=== PATIENT | male | born 1990 | race Caucasian/White ===

== ENCOUNTER 2016-12-05 12:06 | Emergency (ER) | payer OTHER ==
[~2016-12-05] VITALS: Ht 165.1 cm; Wt 73.2 kg
[2016-12-05 12:15] VITALS: TEMP 36.9; Ht 165.1 cm; Wt 73.2 kg
[2016-12-05] MEDS ORDERED: IBUP-1277 PO (12:48)
[2016-12-05] MEDS ORDERED: SODIUM CHLORIDE 0.9% 1000ML 1,000 ML IV STA (13:03)
--- NOTE | 2016-12-05 13:07 | EMERGENCY ROOM VISIT NOTE ---
History First contact with patient: 12:54 Chief Complaint: URINARY SYMPTOMS Stated Complaint: PAIN IN RT KIDNEY, NAUSEA Nursing Triage Summary: pt c/o right flank around to abd started today while at work. feels nauseated no vomiting pt has hx of kidney stones pt c/o pain when moving bowels History of Present Illness The patient is a 26 year old male who presents to the Emergency Room with complaints of right flank and abdominal pain. The patient states that his pain started today. He states the pain is in the right flank and the right side of the abdomen. It is associated with nausea. He does not know of any alleviating or aggravating factors. He denies any fevers. He denies any diarrhea. He reports some dysuria. The patient was seen here 1 month ago for left-sided abdominal pain. A CT scan at that time did reveal a right renal stone. The patient states he has had a kidney stone in the remote past and this feels similar. He denies any pain in his chest or trouble breathing. He denies any diarrhea. Review of Systems A 10 system review of systems was completed with positives and pertinent negatives listed in the HPI. The patient does not speak Bangladeshi but his friend is able to interpret. Past Medical/Surgical History Patient denies Social History Smoking Status: Never Smoker Alcohol Use: none Drug Use: none Occupation Status: employed Current/Historical Medications Scheduled Doxycycline (Monohydrate) (Doxycycline Monohydrate), 100 MG PO BID Miscellaneous Medications Ibuprofen (Advil), 400 MG PO Allergies Coded Allergies: No Known Allergies (Unverified , 12/05/16) Physical Exam Vital Signs Date Time Temp Pulse Resp B/P Pulse Ox O2 Delivery O2 Flow Rate FiO2 12/05/16 15:14 67 18 122/72 98 12/05/16 13:48 106/63 12/05/16 12:15 36.9 60 18 136/83 98 Room Air Physical Exam VITALS: Vitals are noted on the nurse's note and reviewed by myself. Vital signs stable. The patient is afebrile. GENERAL: This is a 26-year-old male, in no acute distress, nondiaphoretic, well- developed well-nourished. SKIN: The skin was without rashes, erythema, edema, or bruising. There is no tenting of the skin. Capillary reflex less than 2 seconds. HEAD: Normocephalic atraumatic. EARS: The external ears are normal in appearance. EYES: Pupils equal round and reactive to light and accommodation. Conjunctivae without injection, sclerae without icterus. Extraocular movements intact. NOSE: Patent, turbinates without inflammation or discharge. MOUTH: Mucous membranes moist. Tonsils are not enlarged. Pharynx without erythema or exudate. Uvula midline. Airway patent. Tongue does not deviate. NECK: Supple without nuchal rigidity. No lymphadenopathy. No thyromegaly. Cervical spine is nontender. No JVD. HEART: Regular rate and rhythm without murmurs gallops or rubs. LUNGS: Clear to auscultation bilaterally without wheezes, rales or rhonchi. No retractions or accessory muscle use. ABDOMEN: Positive bowel sounds x 4. Soft, moderate right lower quadrant tenderness, without masses or organomegaly. Man sign negative. Moderate right-sided CVA tenderness. MUSCULOSKELETAL: No muscle atrophy, erythema, or edema noted. Full range of motion in all extremities. Normal gait. Strength 5/5 throughout. NEURO: Patient was alert and oriented to person place and time. No focal neurological deficits. Medical Decision & Procedures ER Provider Diagnostic Interpretation: CT OF THE ABDOMEN AND PELVIS WITHOUT CONTRAST, STONE PROTOCOL CLINICAL HISTORY: Right flank pain. COMPARISON STUDY: CT of the abdomen and pelvis October 17, 2016. TECHNIQUE: Helical axial images of the abdomen and pelvis were obtained without IV or oral contrast according to renal stone protocol. FINDINGS: Lung bases are clear. A 3 mm calculus within the lower pole of the right kidney is unchanged in position. There are no ureteral calculi. No hydronephrosis or hydroureter is present. Unenhanced images of liver, spleen, adrenal glands and pancreas are normal. There is no evidence for a bowel obstruction. The appendix is normal. There is no ascites or lymphadenopathy. Colonic diverticulosis is noted without evidence for acute diverticulitis. No significant skeletal abnormalities are identified. There is no biliary or pancreatic ductal dilatation. IMPRESSION: 1. 3 mm right renal calculus, unchanged in position since prior CT. No ureteral calculi or hydronephrosis. 2. No acute process within the abdomen or pelvis on unenhanced exam. Normal appendix. Electronically signed by: Juan Manuel Shirley M.D. 12/05/2016 2:13 PM Dictated Date/Time: 12/05/2016 1:58 PM Laboratory Results 12/05/16 12:35 Red Blood Count 5.27, Mean Corpuscular Volume 85.8, Mean Corpuscular Hemoglobin 30.4, Mean Corpuscular Hemoglobin Concent 35.4, Mean Platelet Volume 10.5, Neutrophils (%) (Auto) 59.2, Lymphocytes (%) (Auto) 33.1, Monocytes (%) (Auto) 6.5, Eosinophils (%) (Auto) 0.6, Basophils (%) (Auto) 0.4, Neutrophils # (Auto) 4.94, Lymphocytes # (Auto) 2.76, Monocytes # (Auto) 0.54, Eosinophils # (Auto) 0.05, Basophils # (Auto) 0.03 12/05/16 12:35 Test 12/05/16 12:25 12/05/16 12:35 Urine Color YELLOW Urine Appearance CLEAR (CLEAR) Urine pH 5.0 (4.5-7.5) Urine Specific [place] 1.023 (1.000-1.030) Urine Protein NEG (NEG) Urine Glucose (UA) NEG (NEG) Urine Ketones NEG (NEG) Urine Occult Blood 3+ (NEG) Urine Nitrite NEG (NEG) Urine Bilirubin NEG (NEG) Urine Urobilinogen NEG (NEG) Urine Leukocyte Esterase NEG (NEG) Urine WBC (Auto) 1-5 /hpf (0-5) Urine RBC (Auto) 10-30 /hpf (0-4) Urine Hyaline Casts (Auto) 0 /lpf (0-5) Urine Epithelial Cells (Auto) 0-5 /lpf (0-5) Urine Bacteria (Auto) NEG (NEG) White Blood Count 8.34 K/uL (4.8-10.8) Red Blood Count 5.27 M/uL (4.7-6.1) Hemoglobin 16.0 g/dL (14.0-18.0) Hematocrit 45.2 % (42-52) Mean Corpuscular Volume 85.8 fL (80-100) Mean Corpuscular Hemoglobin 30.4 pg (25-34) Mean Corpuscular Hemoglobin Concent 35.4 g/dl (32-36) Platelet Count 259 K/uL (130-400) Mean Platelet Volume 10.5 fL (7.4-10.4) Neutrophils (%) (Auto) 59.2 % Lymphocytes (%) (Auto) 33.1 % Monocytes (%) (Auto) 6.5 % Eosinophils (%) (Auto) 0.6 % Basophils (%) (Auto) 0.4 % Neutrophils # (Auto) 4.94 K/uL (1.4-6.5) Lymphocytes # (Auto) 2.76 K/uL (1.2-3.4) Monocytes # (Auto) 0.54 K/uL (0.11-0.59) Eosinophils # (Auto) 0.05 K/uL (0-0.5) Basophils # (Auto) 0.03 K/uL (0-0.2) RDW Standard Deviation 38.6 fL (36.4-46.3) RDW Coefficient of Variation 12.3 % (11.5-14.5) Immature Granulocyte % (Auto) 0.2 % Immature Granulocyte # (Auto) 0.02 K/uL (0.00-0.02) Anion Gap 9.0 mmol/L (3-11) Est Creatinine Clear Calc Drug Dose 99.4 ml/min Estimated GFR () 122.8 Estimated GFR (Non- 106.0 BUN/Creatinine Ratio 16.6 (10-20) Calcium Level 8.9 mg/dl (8.5-10.1) Total Bilirubin 0.4 mg/dl (0.2-1) Aspartate Amino Transf (AST/SGOT) 23 U/L (15-37) Alanine Aminotransferase (ALT/SGPT) 25 U/L (12-78) Alkaline Phosphatase 57 U/L (45-117) Total Creatine Kinase 236 U/L (39-308) Total Protein 7.6 gm/dl (6.4-8.2) Albumin 4.1 gm/dl (3.4-5.0) Globulin 3.5 gm/dl (2.5-4.0) Albumin/Globulin Ratio 1.2 (0.9-2) Lipase 99 U/L (73-393) Medications Administered Medications (Trade) Dose Ordered Sig/Harleen Route Start Time Stop Time Status Last Admin Dose Admin Sodium Chloride (Nss 1000ml) 1,000 ml @ 999 mls/hr Q1H1M STAT IV 12/05/16 13:03 12/05/16 14:03 DC 12/05/16 13:12 999 MLS/HR Ceftriaxone Sodium (Rocephin Inj) 1 gm NOW STAT IV 12/05/16 14:21 12/05/16 14:23 DC 12/05/16 14:35 1 GM Azithromycin (Zithromax Tab) 1,000 mg NOW ONCE PO 12/05/16 14:30 12/05/16 14:31 DC 12/05/16 14:36 1,000 MG Doxycycline Hyclate (Vibramycin Cap) 100 mg NOW STAT PO 12/05/16 14:21 12/05/16 14:23 DC 12/05/16 14:35 100 MG ED Course The patient was seen and examined. Previous visits were reviewed. The patient does not have a fever or leukocytosis. He does not have any significant electrolyte abnormalities. CPK was not elevated. Lipase was not elevated. Urinalysis reveals hematuria but no evidence of pyuria or urinary tract infection. CT scan of the abdomen and pelvis reveals a normal appendix. There is nephrolithiasis but no ureterolithiasis. This is unchanged when compared to a study from last month. The patient declined pain medication. The patient was given 1 g IV Rocephin, 1 g oral Zithromax and 100 mg oral doxycycline The patient does have hematuria which has been persistent since last month. He does have nephrolithiasis but no ureterolithiasis. There is no obvious urinary tract infection. The patient denies any penile discharge or chance for sexually -transmitted infection. I discussed the case with Dr. Monet. He recommends the above antibiotics and a prescription for doxycycline. It sounds as though the patient has an appointment at the end of the month with a specialist, possibly urology or nephrology. He should keep this appointment. He should return with any worsening symptoms. Medical Decision DIFFERENTIAL DIAGNOSIS: Hepatitis, cholecystitis, cholangitis, biliary colic, pancreatitis, pneumonia, subdiaphragmatic abscess, appendicitis, inguinal hernia , nephrolithiasis, inflammatory bowel disease, mesenteric adenitis, peptic ulcer disease, GERD, gastritis, pancreatitis, gastroenteritis, bowel obstruction, splenic infarct, diverticulitis, mesenteric ischemia, metabolic, peritonitis, among others. Impression Primary Impression: Hematuria Additional Impression: Flank pain Departure Information Dispostion Home / Self-Care Condition GOOD Prescriptions Doxycycline (Monohydrate) (DOXYCYCLINE MONOHYDRATE) 100 Mg Tab 100 MG PO BID for 10 Days, #20 CAP Prov: Ami Madden PA-C 12/05/16 Referrals Jm Ramos D.O. (PCP) Patient Instructions ED Hematuria, ED Prostatitis, [facility] Additional Instructions Ibuprofen 600 mg every 6-8 hours for moderate pain [place] 1 tablet every 6 hours if needed for worse pain. Do not drink or drive while taking [place] and do not take with Tylenol. Doxycycline every 12 hours for 10 days Follow-up with the specialist at the end of the month as scheduled Return to the emergency Department with any worsening pain, fevers Problem Qualifiers
[2016-12-05 13:14] LABS: BASO % 0.4 %; BASO ABS # 0.03 K/uL (0-0.2); COMPLETE YES; EOS % 0.6 %; HEMATOCRIT 45.2 % (42-52); IG% 0.2 %; LYMPH % 33.1 %; LYMPH ABS # 2.76 K/uL (1.2-3.4); MEAN CELL VOLUME 85.8 fL (80-100); MEAN CORPUSCULAR HEMOGLOBIN 30.4 pg (25-34); MEAN CORPUSCULAR HGB CONC 35.4 g/dl (32-36); MEAN PLATELET VOLUME 10.5 fL (7.4-10.4); MONO % 6.5 %; NEUT % 59.2 %; PLATELET COUNT 259 K/uL (130-400); RED BLOOD COUNT 5.27 M/uL (4.7-6.1); WHITE BLOOD COUNT 8.34 K/uL (4.8-10.8)
[2016-12-05 13:19] LABS: BUN/CREATININE RATIO 16.6 (10-20); CALCIUM 8.9 mg/dl (8.5-10.1); CREATININE 0.98 mg/dl (0.60-1.40)
[2016-12-05 13:22] LABS: ALB/GLOB RATIO 1.2 (0.9-2)
[2016-12-05 13:49] LABS: URINE APPEARANCE CLEAR (CLEAR); URINE BILIRUBIN NEG (NEG); URINE COLOR YELLOW; URINE EPITHELIAL CELL AUTO 0-5 /lpf (0-5); URINE NITRITE NEG (NEG); URINE SPECIFIC GRAVITY 1.023 (1.000-1.030); UROBILINOGEN NEG (NEG); ZZUR CULT IF INDIC CLEAN CATCH NO
[2016-12-05 13:52] LABS: MANUAL MICROSCOPIC REQUIRED? NO; REVIEW REQ? NO
--- NOTE | 2016-12-05 14:15 | DIAGNOSTIC IMAGING REPORT ---
CT OF THE ABDOMEN AND PELVIS WITHOUT CONTRAST, STONE PROTOCOL CLINICAL HISTORY: Right flank pain. COMPARISON STUDY: CT of the abdomen and pelvis October 17, 2016. TECHNIQUE: Helical axial images of the abdomen and pelvis were obtained without IV or oral contrast according to renal stone protocol. FINDINGS: Lung bases are clear. A 3 mm calculus within the lower pole of the right kidney is unchanged in position. There are no ureteral calculi. No hydronephrosis or hydroureter is present. Unenhanced images of liver, spleen, adrenal glands and pancreas are normal. There is no evidence for a bowel obstruction. The appendix is normal. There is no ascites or lymphadenopathy. Colonic diverticulosis is noted without evidence for acute diverticulitis. No significant skeletal abnormalities are identified. There is no biliary or pancreatic ductal dilatation. IMPRESSION: 1. 3 mm right renal calculus, unchanged in position since prior CT. No ureteral calculi or hydronephrosis. 2. No acute process within the abdomen or pelvis on unenhanced exam. Normal appendix. Electronically signed by: Juan Manuel Shirley M.D. 12/05/2016 2:13 PM Dictated Date/Time: 12/05/2016 1:58 PM
[2016-12-05] MEDS ORDERED: CEFTRIAXONE SOD INJ 1 GM ADDVIAL IV STA (14:21)
[2016-12-05] MEDS ORDERED: DOXYCYCLINE HYCLATE 100 MG CAP PO STA (14:21)
[2016-12-05] MEDS ORDERED: AZITHROMYCIN 250 MG TAB PO ONE (14:30)
[2016-12-05] MEDS ORDERED: DOXY100T17 PO (14:36)
[2016-12-05 15:14] VITALS: BP 122/72; PULSE 67; O2SAT 98
[2017-04-16] MEDS ORDERED: BENZ1LOZ2 PO (17:17)
[2017-04-16] MEDS ORDERED: LEVO1TAB35 PO (18:54)
== END 2016-12-05 15:16 | disposition home or self-care (01) ==
LOC: C.EDB 12:07 → C.EDA 15:16
DX: N20.0 Calculus of kidney (principal); Z87.442 Personal history of urinary calculi

== ENCOUNTER 2017-01-23 10:12 | Emergency (ER) | payer OTHER ==
[~2017-01-23] VITALS: Ht 165.1 cm; Wt 75.9 kg
[~2017-01-23 10:12] MED LIST: DOXY100T17 PO; IBUP-1277 PO
[2017-01-23 10:17] VITALS: TEMP 36.9; Ht 165.1 cm; Wt 75.9 kg
[2017-01-23] MEDS ORDERED: SODIUM CHLORIDE 0.9% 1000ML 1,000 ML IV STA (11:02)
[2017-01-23] MEDS ORDERED: ONDANSETRON INJ 2 MG/ML 2 ML VIAL IV STA (11:02)
[2017-01-23] MEDS ORDERED: MoRPHine SULFATE 10 MG/ML CARP/VIAL IV STA (11:02)
[2017-01-23] MEDS ORDERED: KETOROLAC TROMETHAMINE 30 MG/ML VIAL IV STA (11:02)
[2017-01-23] MEDS ORDERED: TAMSULOSIN HCL 0.4 MG CAP PO ONE (11:15)
[2017-01-23 11:16] LABS: MANUAL MICROSCOPIC REQUIRED? NO; REVIEW REQ? NO; URINE APPEARANCE CLEAR (CLEAR); URINE BILIRUBIN NEG (NEG); URINE COLOR YELLOW; URINE NITRITE NEG (NEG); URINE SPECIFIC GRAVITY 1.027 (1.000-1.030); UROBILINOGEN NEG (NEG); ZZUR CULT IF INDIC CLEAN CATCH NO
[2017-01-23 11:54] LABS: HEMATOCRIT 47.6 % (42-52); MEAN CELL VOLUME 86.4 fL (80-100); MEAN CORPUSCULAR HGB CONC 35.9 g/dl (32-36); MEAN PLATELET VOLUME 10.5 fL (7.4-10.4); PLATELET COUNT 219 K/uL (130-400); RED BLOOD COUNT 5.51 M/uL (4.7-6.1); WHITE BLOOD COUNT 7.95 K/uL (4.8-10.8)
--- NOTE | 2017-01-23 12:06 | DIAGNOSTIC IMAGING REPORT ---
ABDOMEN AND PELVIS CT WITHOUT CONTRAST CT DOSE: 790.31 mGycm HISTORY: Right flank pain flank pain/hematuria TECHNIQUE: Multiaxial CT images of the abdomen and pelvis were performed without the use of intravenous and oral contrast according to the standard department stone protocol. COMPARISON STUDY: 12/05/2016 FINDINGS: Lung bases are clear. Liver spleen and pancreas are unremarkable. Left kidney is negative for calcification or hydronephrosis. The adrenal glands are unremarkable. Right kidney shows mild fullness of the collecting system and right ureter. There is a partially obstructing 3 mm calculus at the mid sacral level best seen transaxial image 116 bowel pattern within the abdomen and pelvis is nonobstructive. There are scattered colonic diverticuli. Bladder is midline. IMPRESSION: Partially obstructing 3 mm calculus mid to distal right ureter. Mild fullness right ureter and right renal collecting system. Otherwise negative study Electronically signed by: Arvind Coto M.D. 01/23/2017 12:05 PM Dictated Date/Time: 01/23/2017 11:59 AM
[2017-01-23 12:11] LABS: ALT/SGPT 25 U/L (12-78); BLOOD UREA NITROGEN 14 mg/dl (7-18); BUN/CREATININE RATIO 13.9 (10-20); CALCIUM 8.8 mg/dl (8.5-10.1); CARBON DIOXIDE 28 mmol/L (21-32); CHLORIDE 107 mmol/L (98-107); GLUCOSE 122 mg/dl (70-99); POTASSIUM 3.6 mmol/L (3.5-5.1); SODIUM 141 mmol/L (136-145)
[2017-01-23 12:14] LABS: ALKALINE PHOSPHATASE 67 U/L (45-117); AST/SGOT 17 U/L (15-37)
[2017-01-23 12:21] VITALS: BP 140/87; PULSE 59; O2SAT 96
[2017-01-23] MEDS ORDERED: ONDA4TAB10 SL (12:34)
[2017-01-23] MEDS ORDERED: OXYC1TAB3 PO (12:34)
[2017-01-23] MEDS ORDERED: TAMS0.4C38 PO (12:34)
--- NOTE | 2017-01-23 12:36 | EMERGENCY ROOM VISIT NOTE ---
History First contact with patient: 10:58 Chief Complaint: FLANK PAIN Stated Complaint: KIDNEY - BLOOD IN URINE History of Present Illness The patient is a 26 year old male who presents to the Emergency Room with complaints of right flank pain and hematuria. The patient states the symptoms started last night. The patient denies any nausea or vomiting. The patient admits to normal bowel movements. The patient denies any other urinary symptoms of dysuria, frequency or urgency. The patient states that he has a history of kidney stones. The patient denies any fever. Review of Systems 10 system review was performed and was negative unless stated otherwise history of present illness. Past Medical/Surgical History Kidney stones Social History Smoking Status: Never Smoker Alcohol Use: none Drug Use: none Occupation Status: employed Current/Historical Medications No Active Prescriptions or Reported Meds Allergies Coded Allergies: No Known Allergies (Unverified , 01/23/17) Physical Exam Vital Signs Date Time Temp Pulse Resp B/P Pulse Ox O2 Delivery O2 Flow Rate FiO2 01/23/17 12:21 59 18 140/87 96 Room Air 01/23/17 10:17 36.9 73 18 144/93 99 Room Air Physical Exam GENERAL: 26-year-old male appears in no acute distress. The patient speaks broken French. MENTAL Status: Alert and oriented 3. MOUTH: Mucosa is moist NECK: Supple, no lymphadenopathy noted. No carotid bruits noted. LUNGS: Clear auscultation without wheezes rales or rhonchi. CARDIAC: Regular rate and rhythm without murmur. Pulses is full and equal throughout. BACK: No CVA tenderness noted. ABDOMEN: Positive bowel sounds all 4 quadrants. Soft, tenderness palpation in the right lower quadrant otherwise nontender to palpation without organomegaly or masses. EXTREMITIES: No cyanosis or edema noted. Medical Decision & Procedures ER Provider Diagnostic Interpretation: ABDOMEN AND PELVIS CT WITHOUT CONTRAST CT DOSE: 790.31 mGycm HISTORY: Right flank pain flank pain/hematuria TECHNIQUE: Multiaxial CT images of the abdomen and pelvis were performed without the use of intravenous and oral contrast according to the standard department stone protocol. COMPARISON STUDY: 12/05/2016 FINDINGS: Lung bases are clear. Liver spleen and pancreas are unremarkable. Left kidney is negative for calcification or hydronephrosis. The adrenal glands are unremarkable. Right kidney shows mild fullness of the collecting system and right ureter. There is a partially obstructing 3 mm calculus at the mid sacral level best seen transaxial image 116 bowel pattern within the abdomen and pelvis is nonobstructive. There are scattered colonic diverticuli. Bladder is midline. IMPRESSION: Partially obstructing 3 mm calculus mid to distal right ureter. Mild fullness right ureter and right renal collecting system. Otherwise negative study Electronically signed by: Arvind Coto M.D. 01/23/2017 12:05 PM Laboratory Results 01/23/17 11:30 01/23/17 11:30 Test 01/23/17 11:00 01/23/17 11:30 Urine Color YELLOW Urine Appearance CLEAR (CLEAR) Urine pH 7.0 (4.5-7.5) Urine Specific [place] 1.027 (1.000-1.030) Urine Protein NEG (NEG) Urine Glucose (UA) NEG (NEG) Urine Ketones NEG (NEG) Urine Occult Blood 3+ (NEG) Urine Nitrite NEG (NEG) Urine Bilirubin NEG (NEG) Urine Urobilinogen NEG (NEG) Urine Leukocyte Esterase NEG (NEG) Urine WBC (Auto) 1-5 /hpf (0-5) Urine RBC (Auto) >30 /hpf (0-4) Urine Hyaline Casts (Auto) 1-5 /lpf (0-5) Urine Epithelial Cells (Auto) 5-10 /lpf (0-5) Urine Bacteria (Auto) NEG (NEG) Red Blood Count 5.51 M/uL (4.7-6.1) Mean Corpuscular Volume 86.4 fL (80-100) Mean Corpuscular Hemoglobin 31.0 pg (25-34) Mean Corpuscular Hemoglobin Concent 35.9 g/dl (32-36) RDW Standard Deviation 38.3 fL (36.4-46.3) RDW Coefficient of Variation 12.0 % (11.5-14.5) Mean Platelet Volume 10.5 fL (7.4-10.4) Anion Gap 6.0 mmol/L (3-11) Est Creatinine Clear Calc Drug Dose 106.5 ml/min Estimated GFR () 119.9 Estimated GFR (Non- 103.4 BUN/Creatinine Ratio 13.9 (10-20) Calcium Level 8.8 mg/dl (8.5-10.1) Total Bilirubin 0.2 mg/dl (0.2-1) Direct Bilirubin < 0.1 mg/dl (0-0.2) Aspartate Amino Transf (AST/SGOT) 17 U/L (15-37) Alanine Aminotransferase (ALT/SGPT) 25 U/L (12-78) Alkaline Phosphatase 67 U/L (45-117) Total Protein 7.7 gm/dl (6.4-8.2) Albumin 3.8 gm/dl (3.4-5.0) Lipase 100 U/L (73-393) Medications Administered Medications (Trade) Dose Ordered Sig/Harleen Route Start Time Stop Time Status Last Admin Dose Admin Sodium Chloride (Nss 1000ml) 1,000 ml @ 999 mls/hr Q1H1M STAT IV 01/23/17 11:02 01/23/17 12:02 DC 01/23/17 11:40 999 MLS/HR Ketorolac Tromethamine (Toradol Inj) 30 mg NOW STAT IV 01/23/17 11:02 01/23/17 11:05 DC 01/23/17 11:39 30 MG Tamsulosin HCl (Flomax Cap) 0.4 mg NOW ONCE PO 01/23/17 11:15 01/23/17 11:16 DC 01/23/17 11:38 0.4 MG Morphine Sulfate (MoRPHine SULFATE INJ) 6 mg NOW STAT IV 01/23/17 11:02 01/23/17 11:05 DC 01/23/17 11:39 6 MG Ondansetron HCl (Zofran Inj) 4 mg NOW STAT IV 01/23/17 11:02 01/23/17 11:05 DC 01/23/17 11:38 4 MG ED Course The patient was evaluated. IV access was obtained. The patient was given 1 L normal saline wide-open. The patient was given Flomax 0.4 mg by mouth. The patient was also given Toradol 30 mg IV, morphine 6 mg IV and Zofran 4 mg IV. CBC and differential, renal profile, LFTs and lipase levels were ordered. Urinalysis was ordered. Urinalysis was negative. Labs are reviewed and were unremarkable. CT stone study was ordered and interpreted by the radiologist as above with a 3 mm mid right ureteral calculi. The patient was informed of all findings. The patient was reevaluated was feeling better. The patient was discharged home in stable condition. Medical Decision Differential diagnosis include UTI, pyelonephritis, ureteral calculi, diverticulitis, acute appendicitis Due to the patient's history of kidney stones and hematuria most likely diagnosis with ureteral calculi. Impression Primary Impression: Ureteral calculus, right Departure Information Dispostion Home / Self-Care Condition GOOD Prescriptions Tamsulosin Hcl (FLOMAX) 0.4 Mg Cap 0.4 MG PO DAILY for 7 Days, #7 CAP Prov: Jemima Coto PA-C 01/23/17 Ondasetron Odt (ZOFRAN ODT) 4 Mg Tab 4 MG SL Q6H for Nausea, #10 TAB Prov: Jemima Coto PA-C 01/23/17 Oxycodone Immediate Rel Tab (ROXICODONE IR) 5 Mg Tab 1-2 TAB PO Q6 Y for Pain, #24 TAB Prov: Jemima Coto PA-C 01/23/17 Referrals Jm Ramos D.O. (PCP) Forms HOME CARE DOCUMENTATION FORM, IMPORTANT VISIT INFORMATION Patient Instructions Kidney Stones - [facility], [facility] Additional Instructions Push fluids. Take Flomax daily as directed. Ibuprofen 600 mg every 6 hours with food for pain. Take OxyIR as needed for more severe pain. Do not drive while taking the OxyIR. Take Zofran as needed for nausea. Strain all your urine. If if you have not passed the stone in 1 week recommend follow-up with Dr. De
[2017-04-16] MEDS ORDERED: BENZ1LOZ2 PO (17:17)
[2017-04-16] MEDS ORDERED: LEVO1TAB35 PO (18:54)
== END 2017-01-23 12:49 | disposition home or self-care (01) ==
LOC: C.EDB 10:17 → C.EDA 12:49
DX: N20.2 Calculus of kidney with calculus of ureter (principal); Z87.442 Personal history of urinary calculi

== ENCOUNTER 2017-03-05 08:59 | Emergency (ER) | payer OTHER ==
[~2017-03-05] VITALS: Ht 165.1 cm; Wt 75.7 kg
[~2017-03-05 08:59] MED LIST changes: -DOXY100T17 PO; -IBUP-1277 PO; +ONDA4TAB10 SL; +OXYC1TAB3 PO
[2017-03-05 09:04] VITALS: TEMP 37; Ht 165.1 cm; Wt 75.7 kg
--- NOTE | 2017-03-05 09:44 | DIAGNOSTIC IMAGING REPORT ---
LEFT FOOT 3 VIEWS CLINICAL HISTORY: Left lateral foot pain. No trauma. FINDINGS: 3 views of the left foot are obtained. No prior studies are available for comparison at the time of dictation. The skeletal structures are well mineralized. No fracture is seen. A large os naviculari is incidentally noted. The joint spaces of the foot are well-maintained. The overlying soft tissues are within normal limits. IMPRESSION: No acute bony abnormality is seen in the left foot. Electronically signed by: Benito Maharaj M.D. 03/05/2017 9:42 AM Dictated Date/Time: 03/05/2017 9:41 AM
--- NOTE | 2017-03-05 09:49 | EMERGENCY ROOM VISIT NOTE ---
ED Visit Note First contact with patient: 09:10 CHIEF COMPLAINT: Left foot pain times one day HISTORY OF PRESENT INJURY: Patient is a 26-year-old white male who presents to the emergency department for evaluation of left foot pain. He has had symptoms for a week or so but they got worse last evening. 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 He is on his feet a lot. He denies any direct trauma or injury. He has not taken any medications, nor performed any interventions for his symptoms. He states that the pain was so severe he could not walk this morning. He presently rates it an 8/10. It is located in the lateral aspect of the left foot, primarily over the third, fourth and fifth toes and into the metatarsal region. He denies any ankle pain. REVIEW OF SYSTEMS: Review of systems as per HPI. All other systems reviewed were negative. At least 6 systems reviewed. PMH: Electronic medical records are reviewed and summarized as above/below. See Problem List. SOCIAL HISTORY: The patient lives at home with his family. Nonsmoker. PHYSICAL EXAM: Vital Signs: Reviewed Nurse's notes. GENERAL: Pleasant 26-year- old white male who is awake and alert and in no acute distress. He has a family member at the bedside. MUSCULOSKELETAL: Left ankle is nonswollen, and nontender to palpation. No ankle joint effusion is appreciated. He has tenderness over the third and fourth toes, extending into the third and fourth metatarsals. He does not have any pain over the first metatarsal or the great toe. Midfoot is normal. Lisfranc joint is negative. Range of motion is full. No deformity. The skin is intact. Capillary refill is less than 2 seconds. Sensation is intact. EMERGENCY DEPARTMENT COURSE: X-rays of the left foot were obtained and were negative for acute fracture or bony abnormality. Differential diagnosis includes fracture, sprain, contusion, stress reaction, dislocation, among others. Conservative care measures were discussed. Patient declined crutches. LEFT FOOT 3 VIEWS CLINICAL HISTORY: Left lateral foot pain. No trauma. FINDINGS: 3 views of the left foot are obtained. No prior studies are available for comparison at the time of dictation. The skeletal structures are well mineralized. No fracture is seen. A large os naviculari is incidentally noted. The joint spaces of the foot are well-maintained. The overlying soft tissues are within normal limits. IMPRESSION: No acute bony abnormality is seen in the left foot. Problem List Medical Problems: (1) Abdominal pain, left lower quadrant Status: Resolved (2) Flank pain Status: Resolved (3) Hematuria Status: Resolved (4) Ureteral calculus, right Status: Resolved Current/Historical Medications No Active Prescriptions or Reported Meds Allergies Coded Allergies: No Known Allergies (Unverified , 03/05/17) Vital Signs Date Time Temp Pulse Resp B/P Pulse Ox O2 Delivery O2 Flow Rate FiO2 03/05/17 10:03 76 18 138/79 98 03/05/17 09:04 37.0 84 18 149/80 97 Room Air Departure Information Impression Primary Impression: Foot pain Prescriptions No Active Prescriptions or Reported Meds Referrals Jm Ramos D.OMic (PCP) Patient Instructions [facility] Additional Instructions Ibuprofen(Motrin, Advil) may be used for fever or pain. Use 600mg every six hours as needed. Take with food. Avoid using more than 2400mg in a 24 hour period. Do not use 2400mg per day for more than three consecutive days without physician direction. Prolonged inappropriate use can lead to stomach upset or ulcers. This medication can be taken if you need to drive, work, or perform activities which may be dangerous when taking narcotic pain medication. (AND/OR) Acetaminophen(Tylenol) may be used for fever or pain. Use 1000mg every six hours as needed. Avoid using more than 3000mg in a 24 hour period. This medication can be taken if you need to drive, work, or perform activities which may be dangerous when taking narcotic pain medication. Ice compresses for 20 minutes at a time four times daily for 2-3 days. Use the crutches as needed. Rest and elevate your injury. Continue current medications. Return to the ER immediately for any numbness, tingling, severe pain, extreme swelling in the extremity or as needed. Followup with your family doctor or orthopedic surgery if no improvement in 5-7 days.
[2017-03-05 10:03] VITALS: BP 138/79; PULSE 76; O2SAT 98
[2017-04-16] MEDS ORDERED: BENZ1LOZ2 PO (17:17)
[2017-04-16] MEDS ORDERED: LEVO1TAB35 PO (18:54)
== END 2017-03-05 10:05 | disposition home or self-care (01) ==
LOC: C.EDB 09:00 → C.EDA 10:05
DX: M79.672 Pain in left foot (principal)

== ENCOUNTER → 2017-06-24 | Outpatient (CLI) | payer OTHER ==
[~2017-06-24] MED LIST changes: +BENZ1LOZ2 PO; +IBUP600T44 PO; +LEVO1TAB35 PO; -ONDA4TAB10 SL; -OXYC1TAB3 PO
[2017-06-26 16:35] LABS: QUANTIF TB AG-NIL 0.42 IU/ML; QUANTIFERON NIL 0.05 IU/ML
== END | disposition home or self-care (01) ==
LOC: C.LABSPEC 12:14
PROVIDERS: ATTEND Family Medicine
DX: Z11.3 Encounter for screening for infections with a predominantly sexual mode of transmission (principal); Z11.1 Encounter for screening for respiratory tuberculosis

== ENCOUNTER 2017-07-28 09:27 | Emergency (ER) | payer OTHER ==
[~2017-07-28] VITALS: Ht 172.7 cm; Wt 73.2 kg
[~2017-07-28 09:27] MED LIST changes: -IBUP600T44 PO
[2017-07-28 09:29] VITALS: TEMP 36.4; Ht 172.7 cm; Wt 73.2 kg
[2017-07-28 09:35] VITALS: O2SAT 99
[2017-07-28] MEDS ORDERED: KETOROLAC TROMETHAMINE 30 MG/ML VIAL IV STA (09:42)
[2017-07-28] MEDS ORDERED: SODIUM CHLORIDE 0.9% 1000ML 1,000 ML IV STA (09:42)
[2017-07-28] MEDS ORDERED: ONDANSETRON INJ 2 MG/ML 2 ML VIAL IV STA (09:42)
[2017-07-28] MEDS ORDERED: LABETALOL HCL IV 5 MG/ML 20ML IV STA (09:42)
--- NOTE | 2017-07-28 09:50 | EMERGENCY ROOM VISIT NOTE ---
History Report prepared by Toro: Ami Navarro Under the Supervision of: Dr. Benito Mcnair M.D. First contact with patient: 09:39 Chief Complaint: CARDIAC ASSESSMENT Stated Complaint: HEART PAIN, SICK,DIZZY History of Present Illness The patient is a 27 year old male who presents to the Emergency Room with complaints of intermittent chest pressure that began one month ago, but worsened yesterday. He currently rates his discomfort as a 5/10 in severity. Per the patient's significant other, the patient has intermittently been experiencing intermittent chest pressure for the past month. The patient states that his pain worsened with the change of weather. He states that two months ago he was diagnosed with pneumonia. The patient reports difficulty breathing and nausea, but denies any vomiting. He denies any fever, cough, or diarrhea. The patient reports a history of hypertension, but denies being on medication for it. Source of History: patient, spouse/significant other () Onset: one month ago Position: chest Symptom Intensity: 5/10 Quality: pressure Timing: intermittent, worsening Modifying Factors (Worsening): other (change in weather) Associated Symptoms: + SOB, + nausea, No fevers, No cough, No vomiting Review of Systems See HPI for pertinent positives & negatives. A total of 10 systems reviewed and were otherwise negative. Past Medical & Surgical Medical Problems: (1) Abdominal pain, left lower quadrant (2) Flank pain (3) Hematuria (4) Hypertension (5) Kidney stone (6) Pneumonia (7) Ureteral calculus, right Family History Patient reports no known family medical history. Social History Smoking Status: Never Smoker Alcohol Use: none Drug Use: none Marital Status: Housing Status: lives with significant other Occupation Status: employed Current/Historical Medications Scheduled PRN Ibuprofen (Motrin), 600 MG PO TID PRN for Pain Allergies Coded Allergies: No Known Allergies (Unverified , 07/28/17) Physical Exam Vital Signs Date Time Temp Pulse Resp B/P (MAP) Pulse Ox O2 Delivery O2 Flow Rate FiO2 07/28/17 11:21 51 14 143/75 98 07/28/17 11:01 51 14 143/75 98 Room Air 07/28/17 10:31 58 16 122/77 98 Room Air 07/28/17 10:04 127/88 Room Air 07/28/17 09:57 99 Room Air 07/28/17 09:47 60 19 100 Room Air 07/28/17 09:44 67 07/28/17 09:42 66 20 155/102 99 Room Air 07/28/17 09:35 99 Room Air 07/28/17 09:29 36.4 68 18 139/93 100 Room Air Physical Exam GENERAL: Patient is in no acute distress. HEENT: No acute trauma, normocephalic atraumatic, mucous membranes moist, no nasal congestion, no scleral icterus. NECK: No stridor, no adenopathy, no meningismus, trachea is midline. CHEST: Tender left chest wall with palpation, no rash. LUNGS: Clear to auscultation bilaterally, no wheeze, no rhonchi, breath sounds equal. HEART: Without murmurs gallops or rubs, regular rate and rhythm. ABDOMEN: Soft, nontender, bowel sounds positive, no hernias, no peritonitis. EXTREMITIES: No cyanosis or edema, full range of motion of all the joints without pain or difficulty, no signs for acute trauma. NEUROLOGIC: Oriented x 3, no acute motor or sensory deficits, no focal weakness. SKIN: No rash, no jaundice, no diaphoresis. Medical Decision & Procedures ER Provider Diagnostic Interpretation: X-ray results as stated below per interpretation by me and the radiologist: CHEST ONE VIEW PORTABLE CLINICAL HISTORY: Atypical chest pain COMPARISON STUDY: 04/16/2017 FINDINGS: The cardiac and mediastinal contours are normal. There is no evidence of focal pulmonary consolidation. There is no evidence of failure. No pleural effusions are visualized.[ IMPRESSION: No active disease in the chest. Electronically signed by: Surya Bowens M.D. 07/28/2017 10:17 AM Dictated Date/Time: 07/28/2017 10:16 AM Laboratory Results 07/28/17 09:45 07/28/17 09:45 Test 07/28/17 09:45 07/28/17 09:55 Red Blood Count 5.34 M/uL (4.7-6.1) Mean Corpuscular Volume 86.1 fL (80-100) Mean Corpuscular Hemoglobin 30.9 pg (25-34) Mean Corpuscular Hemoglobin Concent 35.9 g/dl (32-36) RDW Standard Deviation 38.2 fL (36.4-46.3) RDW Coefficient of Variation 12.1 % (11.5-14.5) Mean Platelet Volume 10.2 fL (7.4-10.4) Prothrombin Time 11.2 SECONDS (9.0-12.0) Prothromb Time International Ratio 1.0 (0.9-1.1) Activated Partial Thromboplast Time 27.6 SECONDS (21.0-31.0) Partial Thromboplastin Ratio 1.1 Anion Gap 5.0 mmol/L (3-11) Est Creatinine Clear Calc Drug Dose 107.3 ml/min Estimated GFR () 119.0 Estimated GFR (Non- 102.7 BUN/Creatinine Ratio 14.8 (10-20) Calcium Level 8.6 mg/dl (8.5-10.1) Total Bilirubin 0.5 mg/dl (0.2-1) Aspartate Amino Transf (AST/SGOT) 16 U/L (15-37) Alanine Aminotransferase (ALT/SGPT) 21 U/L (12-78) Alkaline Phosphatase 66 U/L (45-117) Troponin I < 0.015 ng/ml (0-0.045) Total Protein 7.8 gm/dl (6.4-8.2) Albumin 4.0 gm/dl (3.4-5.0) Globulin 3.8 gm/dl (2.5-4.0) Albumin/Globulin Ratio 1.1 (0.9-2) Lipase 100 U/L (73-393) Thyroid Stimulating Hormone (TSH) 1.380 uIu/ml (0.300-4.500) Bedside D-Dimer 28 ng/mlFEU (0-450) Laboratory results reviewed by me. Medications Administered Medications (Trade) Dose Ordered Sig/Harleen Route Start Time Stop Time Status Last Admin Dose Admin Ondansetron HCl (Zofran Inj) 4 mg NOW STAT IV 07/28/17 09:42 07/28/17 09:47 DC 07/28/17 10:07 4 MG Sodium Chloride 1,000 ml @ 999 mls/hr Q1H1M STAT IV 07/28/17 09:42 07/28/17 10:42 DC 07/28/17 10:06 999 MLS/HR Ketorolac Tromethamine (Toradol Inj) 30 mg NOW STAT IV 07/28/17 09:42 07/28/17 09:47 DC 07/28/17 10:07 30 MG ECG Indication: chest pain Rate (beats per minute): 63 Rhythm: normal sinus Findings: no acute ischemic change, no ectopy ED Course 0941: The patient was evaluated in room A12B. A complete history and physical exam was performed. 0942: Ordered Toradol Inj 30 mg IV, Sodium Chloride 1000 ml @ 999 mls/hr IV, Zofran Inj 4 mg IV. 1008: Per nursing staff, the Labetalol that was ordered for the patient was not given, because his blood pressure came down on it's own. 1112: I reevaluated the patient and he is resting comfortably. I discussed the exam findings with him and I discussed the treatment plan. He verbalized complete understanding and agreement. He is ready to go home. Medical Decision The patient is a 27 year old male who presents to the ED with complaints of intermittent chest pressure. Differential diagnoses considered include musculoskeletal pain, PE, aortic dissection, pneumonia, cardiac ischemia, anemia , pericarditis. There is no leukocytosis or concerning anemia. No significant electrolyte abnormality, kidney failure or hepatitis. The patient appears to be in a euthyroid state. EKG shows a normal sinus rhythm, no acute ischemia. Cardiac enzyme testing 1 is not consistent with acute cardiac injury. Chest x-ray does not show pneumonia, mediastinal widening or pneumothorax. D-dimer testing is negative. With a negative d-dimer and my low suspicion for PE, I will stop the workup for this diagnosis. The patient presents with left-sided chest pain. His workup is benign, the pain does seem reproducible on exam and is likely musculoskeletal. The patient was given IV saline, IV Toradol and IV Zofran. He is being discharged. He can return if worsening. Medication Reconcilliation Current Medication List: was personally reviewed by me Impression Primary Impression: Left sided chest pain Scribe Attestation The scribe's documentation has been prepared under my direction and personally reviewed by me in its entirety. I confirm that the note above accurately reflects all work, treatment, procedures, and medical decision making performed by me. Departure Information Dispostion Home / Self-Care Prescriptions Ibuprofen (Motrin) 600 Mg Tab 600 MG PO TID Y for Pain for 5 Days, #15 TAB With Food Prov: Benito Mcnair M.D. 07/28/17 Referrals Sulman,Jm A., D.O. Forms IMPORTANT VISIT INFORMATION Patient Instructions My [email or web address] Additional Instructions motrin 600 mg 3x per day for 5 days heat to the chest wall may help see vinicio corral for recheck this week heart and lung testing was ok today
[2017-07-28 09:58] LABS: MEAN CELL VOLUME 86.1 fL (80-100); MEAN CORPUSCULAR HEMOGLOBIN 30.9 pg (25-34); MEAN CORPUSCULAR HGB CONC 35.9 g/dl (32-36); MEAN PLATELET VOLUME 10.2 fL (7.4-10.4); PLATELET COUNT 239 K/uL (130-400); RED BLOOD COUNT 5.34 M/uL (4.7-6.1); WHITE BLOOD COUNT 8.71 K/uL (4.8-10.8)
[2017-07-28 10:08] LABS: PARTIAL THROMBOPLASTIN RATIO 1.1; PROTHROMBIN TIME (PATIENT) 11.2 SECONDS (9.0-12.0)
[2017-07-28 10:16] LABS: ALT/SGPT 21 U/L (12-78); AST/SGOT 16 U/L (15-37); BLOOD UREA NITROGEN 15 mg/dl (7-18); BUN/CREATININE RATIO 14.8 (10-20); CALCIUM 8.6 mg/dl (8.5-10.1); CARBON DIOXIDE 28 mmol/L (21-32); CHLORIDE 107 mmol/L (98-107); GLUCOSE 95 mg/dl (70-99); POTASSIUM 3.9 mmol/L (3.5-5.1); SODIUM 140 mmol/L (136-145)
--- NOTE | 2017-07-28 10:18 | DIAGNOSTIC IMAGING REPORT ---
CHEST ONE VIEW PORTABLE CLINICAL HISTORY: Atypical chest pain COMPARISON STUDY: 04/16/2017 FINDINGS: The cardiac and mediastinal contours are normal. There is no evidence of focal pulmonary consolidation. There is no evidence of failure. No pleural effusions are visualized.[ IMPRESSION: No active disease in the chest. Electronically signed by: Surya Bowens M.D. 07/28/2017 10:17 AM Dictated Date/Time: 07/28/2017 10:16 AM
[2017-07-28 10:27] LABS: ALB/GLOB RATIO 1.1 (0.9-2); ALKALINE PHOSPHATASE 66 U/L (45-117)
[2017-07-28] MEDS ORDERED: IBUP600T44 PO (11:14)
[2017-07-28 11:21] VITALS: BP 143/75; PULSE 51; O2SAT 98
== END 2017-07-28 11:21 | disposition home or self-care (01) ==
LOC: C.EDB 09:27 → C.EDA 11:21
DX: R07.89 Other chest pain (principal); Z87.01 Personal history of pneumonia (recurrent); I10 Essential (primary) hypertension; Z87.442 Personal history of urinary calculi

== ENCOUNTER 2017-12-10 08:18 | Emergency (ER) | payer OTHER ==
[~2017-12-10] VITALS: Ht 172.7 cm; Wt 72.5 kg
[2017-12-10 08:29] VITALS: TEMP 37; Ht 172.7 cm; Wt 72.5 kg
[2017-12-10] MEDS ORDERED: SODIUM CHLORIDE 0.9% 1000ML 1,000 ML IV STA (08:46)
[2017-12-10 09:16] LABS: BASO % 0.3 %; BASO ABS # 0.02 K/uL (0-0.2); EOS % 0.5 %; EOS ABS # 0.03 K/uL (0-0.5); HEMATOCRIT 43.4 % (42-52); HEMOGLOBIN 15.5 g/dL (14.0-18.0); IG# 0.01 K/uL (0.00-0.02); LYMPH % 28.4 %; LYMPH ABS # 1.86 K/uL (1.2-3.4); MEAN CELL VOLUME 87.1 fL (80-100); MEAN CORPUSCULAR HEMOGLOBIN 31.1 pg (25-34); MEAN CORPUSCULAR HGB CONC 35.7 g/dl (32-36); MEAN PLATELET VOLUME 9.9 fL (7.4-10.4); MONO % 11.6 %; MONO ABS # 0.76 K/uL (0.11-0.59); NEUT ABS # 3.87 K/uL (1.4-6.5); PLATELET COUNT 182 K/uL (130-400); RED CELL DISTRIBUTION WIDTH CV 12.1 % (11.5-14.5); RED CELL DISTRIBUTION WIDTH SD 38.8 fL (36.4-46.3); WHITE BLOOD COUNT 6.55 K/uL (4.8-10.8)
[2017-12-10 09:40] LABS: ALBUMIN 3.4 gm/dl (3.4-5.0); CALCIUM 8.4 mg/dl (8.5-10.1); CREATININE 0.97 mg/dl (0.60-1.40); POTASSIUM 4.1 mmol/L (3.5-5.1)
--- NOTE | 2017-12-10 09:40 | DIAGNOSTIC IMAGING REPORT ---
CHEST 2 VIEWS ROUTINE CLINICAL HISTORY: Cough. Flulike symptoms. Possible prior history of tuberculosis COMPARISON STUDY: 07/28/2017 FINDINGS: The cardiac and mediastinal contours are normal. There is no evidence of focal pulmonary consolidation. There is no evidence of failure. No pleural effusions are visualized.[ No granulomatous calcifications are visualized. There is no conventional radiographic evidence of adenopathy. IMPRESSION: No active disease in the chest. Electronically signed by: Surya Bowens M.D. 12/10/2017 9:39 AM Dictated Date/Time: 12/10/2017 9:38 AM
[2017-12-10 09:45] LABS: CKMB 0.6 ng/ml (0.5-3.6)
[2017-12-10] MEDS ORDERED: MoRPHine SULFATE 4 MG/ML 1 ML CARP\\VIAL IV STA (10:05)
[2017-12-10 10:12] LABS: INFLUENZA B ANTIGEN Neg for Influ B (NEG)
--- NOTE | 2017-12-10 10:14 | DIAGNOSTIC IMAGING REPORT ---
EXAMINATION: RENAL ULTRASOUND CLINICAL HISTORY: R flank pain, fever, chills. Hx stones COMPARISON STUDY: CT scan of the abdomen pelvis dated 01/23/2017 FINDINGS: The right kidney measures 11.3 cm. The left kidney measures 11.2 cm. There is no evidence of hydronephrosis. There are no renal masses. No bladder abnormalities are visualized. Bilateral ureteral jets were visualized. IMPRESSION : Normal renal ultrasound. Electronically signed by: Surya Bowens M.D. 12/10/2017 10:13 AM Dictated Date/Time: 12/10/2017 10:12 AM
[2017-12-10] MEDS ORDERED: OXYCODONE HCL IR 5 MG TAB (IMMEDIATE RELEASE) PO STA (11:39)
--- NOTE | 2017-12-10 11:42 | EMERGENCY ROOM VISIT NOTE ---
History First contact with patient: 08:35 Chief Complaint: FLU LIKE SX Stated Complaint: KIDNEY PAIN, FEVER History of Present Illness The patient is a 27 year old male who presents to the Emergency Room via private vehicle accompanied by with complaints of "kidney pain, fever". The patient states that he had right flank pain throughout this past week and does have a history of right-sided renal calculi. He states that this past Friday he developed cold like symptoms consistent with that of fever, cough, throat pain. He states that this has continued however today he notes acute worsening of the right-sided flank pain. He also feels as though his urine smells funny. He states he is also being treated for a positive tuberculosis test in the past but does not believe this is active. He rates his overall pain currently as an 8/10. He notes that the pain in the right flank comes and goes. Review of Systems A complete 10-point Review of Systems was discussed with the patient, with pertinent positives and negatives listed in the History of Present Illness. All remaining Review of Systems questions can be considered negative unless otherwise specified. Past Medical/Surgical History Medical Problems: (1) Abdominal pain, left lower quadrant (2) Flank pain (3) Hematuria (4) Hypertension (5) Kidney stone (6) Pneumonia (7) Ureteral calculus, right Family History Patient reports no known family medical history. Social History Smoking Status: Never Smoker Alcohol Use: none Drug Use: none Marital Status: Housing Status: lives with significant other Occupation Status: employed Physical Exam Vital Signs Date Time Temp Pulse Resp B/P (MAP) Pulse Ox O2 Delivery O2 Flow Rate FiO2 12/10/17 11:48 72 16 133/83 99 12/10/17 10:02 71 18 120/78 99 Room Air 12/10/17 08:29 37.0 73 18 114/62 99 Room Air Physical Exam VITAL SIGNS - Vital signs and nursing notes were reviewed. Stable. GENERAL - [id number] male appearing his stated age who is in no acute distress. Communicates well with provider (through use of his as spanish medical interpreter) and answers questions appropriately. SKIN - Without rashes. HEAD - NC/AT. EYES - PERRL with EOMI bilaterally. Sclera anicteric. EARS - No deformities of external structures noted on gross examination bilaterally. No pain elicited with palpation of the tragus bilaterally. External auditory canals without discharge or otorrhea. Tympanic membranes pearly horne without retraction or bulging. No fluid or purulent material visualized behind the TM. Handle of malleus, umbo, cone of light, pars tensa/ flaccid all easily visualized. NOSE - Midline and without cyanosis. No epistaxis or purulent drainage noted. MOUTH/OROPHARYNX - Without perioral cyanosis. NECK - Neck with FROM. No meningismus. LUNGS - Chest wall symmetric without accessory muscle use, intercostals retractions, or central cyanosis. Normal vesicular breath sounds CTA B/L. No wheezes, rales, or rhonchi appreciated. CARDIAC - RRR with S1/S2. No murmur, rubs, or gallops appreciated. ABDOMEN - Abdominal contour normal without pulsations or visible masses. BS normoactive all four quadrants. No tenderness, palpable masses, hepatosplenomegaly, or ascites noted. EXTREMITIES - No clubbing or peripheral cyanosis. No pretibial edema present. Min R CVA tenderness. Medical Decision & Procedures ER Provider Diagnostic Interpretation: CHEST 2 VIEWS ROUTINE CLINICAL HISTORY: Cough. Flulike symptoms. Possible prior history of tuberculosis COMPARISON STUDY: 07/28/2017 FINDINGS: The cardiac and mediastinal contours are normal. There is no evidence of focal pulmonary consolidation. There is no evidence of failure. No pleural effusions are visualized.[ No granulomatous calcifications are visualized. There is no conventional radiographic evidence of adenopathy. IMPRESSION: No active disease in the chest. Electronically signed by: Surya Bowens M.D. 12/10/2017 9:39 AM Dictated Date/Time: 12/10/2017 9:38 AM EXAMINATION: RENAL ULTRASOUND CLINICAL HISTORY: R flank pain, fever, chills. Hx stones COMPARISON STUDY: CT scan of the abdomen pelvis dated 01/23/2017 FINDINGS: The right kidney measures 11.3 cm. The left kidney measures 11.2 cm. There is no evidence of hydronephrosis. There are no renal masses. No bladder abnormalities are visualized. Bilateral ureteral jets were visualized. IMPRESSION : Normal renal ultrasound. Electronically signed by: Surya Bowens M.D. 12/10/2017 10:13 AM Dictated Date/Time: 12/10/2017 10:12 AM Laboratory Results 12/10/17 09:05 Red Blood Count 4.98, Mean Corpuscular Volume 87.1, Mean Corpuscular Hemoglobin 31.1, Mean Corpuscular Hemoglobin Concent 35.7, Mean Platelet Volume 9.9, Neutrophils (%) (Auto) 59.0, Lymphocytes (%) (Auto) 28.4, Monocytes (%) (Auto) 11.6, Eosinophils (%) (Auto) 0.5, Basophils (%) (Auto) 0.3, Neutrophils # (Auto ) 3.87, Lymphocytes # (Auto) 1.86, Monocytes # (Auto) 0.76, Eosinophils # (Auto ) 0.03, Basophils # (Auto) 0.02 12/10/17 09:05 Test 12/10/17 09:05 12/10/17 10:41 White Blood Count 6.55 K/uL (4.8-10.8) Red Blood Count 4.98 M/uL (4.7-6.1) Hemoglobin 15.5 g/dL (14.0-18.0) Hematocrit 43.4 % (42-52) Mean Corpuscular Volume 87.1 fL (80-100) Mean Corpuscular Hemoglobin 31.1 pg (25-34) Mean Corpuscular Hemoglobin Concent 35.7 g/dl (32-36) Platelet Count 182 K/uL (130-400) Mean Platelet Volume 9.9 fL (7.4-10.4) Neutrophils (%) (Auto) 59.0 % Lymphocytes (%) (Auto) 28.4 % Monocytes (%) (Auto) 11.6 % Eosinophils (%) (Auto) 0.5 % Basophils (%) (Auto) 0.3 % Neutrophils # (Auto) 3.87 K/uL (1.4-6.5) Lymphocytes # (Auto) 1.86 K/uL (1.2-3.4) Monocytes # (Auto) 0.76 K/uL (0.11-0.59) Eosinophils # (Auto) 0.03 K/uL (0-0.5) Basophils # (Auto) 0.02 K/uL (0-0.2) RDW Standard Deviation 38.8 fL (36.4-46.3) RDW Coefficient of Variation 12.1 % (11.5-14.5) Immature Granulocyte % (Auto) 0.2 % Immature Granulocyte # (Auto) 0.01 K/uL (0.00-0.02) Anion Gap 5.0 mmol/L (3-11) Est Creatinine Clear Calc Drug Dose 110.6 ml/min Estimated GFR () 123.5 Estimated GFR (Non- 106.6 BUN/Creatinine Ratio 11.5 (10-20) Calcium Level 8.4 mg/dl (8.5-10.1) Total Bilirubin 0.2 mg/dl (0.2-1) Aspartate Amino Transf (AST/SGOT) 18 U/L (15-37) Alanine Aminotransferase (ALT/SGPT) 26 U/L (12-78) Alkaline Phosphatase 52 U/L (45-117) Total Creatine Kinase 139 U/L (39-308) Creatine Kinase MB 0.6 ng/ml (0.5-3.6) Creatine Kinase MB Ratio 0.4 (0-3.0) Total Protein 7.0 gm/dl (6.4-8.2) Albumin 3.4 gm/dl (3.4-5.0) Globulin 3.6 gm/dl (2.5-4.0) Albumin/Globulin Ratio 0.9 (0.9-2) Influenza Type A Antigen POS for Influ A (NEG) Influenza Type B Antigen Neg for Influ B (NEG) Urine Color DK YELLOW Urine Appearance TURBID (CLEAR) Urine pH 5.0 (4.5-7.5) Urine Specific [place] 1.024 (1.000-1.030) Urine Protein TRACE (NEG) Urine Glucose (UA) NEG (NEG) Urine Ketones TRACE (NEG) Urine Occult Blood 3+ (NEG) Urine Nitrite NEG (NEG) Urine Bilirubin NEG (NEG) Urine Urobilinogen NEG (NEG) Urine Leukocyte Esterase NEG (NEG) Urine WBC (Auto) 1-5 /hpf (0-5) Urine RBC (Auto) 10-30 /hpf (0-4) Urine Hyaline Casts (Auto) 1-5 /lpf (0-5) Urine Epithelial Cells (Auto) 20-30 /lpf (0-5) Urine Bacteria (Auto) NEG (NEG) Medications Administered Medications (Trade) Dose Ordered Sig/Harleen Route Start Time Stop Time Status Last Admin Dose Admin Sodium Chloride 1,000 ml @ 999 mls/hr Q1H1M STAT IV 12/10/17 08:46 12/10/17 09:46 DC 12/10/17 08:46 999 MLS/HR Morphine Sulfate (MoRPHine SULFATE INJ) 4 mg NOW STAT IV 12/10/17 10:05 12/10/17 10:06 DC 12/10/17 10:10 4 MG Oxycodone HCl (Roxicodone Immediate Rel Tab) 5 mg NOW STAT PO 12/10/17 11:39 12/10/17 11:40 DC 12/10/17 11:48 5 MG Medical Decision Patient was seen and evaluated as above. Presents to us today with right flank pain and flulike illness. He presents to us today hemodynamically stable, and nontoxic on exam. His does provide much interpretation secondary to him mainly speaking [place]. He is afebrile. I suspect he may be experiencing a kidney stone on the right, as well as influenza simultaneously. IV access was established, and the above workup was performed. A chest x-ray and renal ultrasound were obtained. Chest x-ray and renal ultrasound negative. His urine does reveal some blood of which is only identified upon microscopic examination the lab. I do suspect that he may have passed a stone causing his pain and has some irritation in the right flank but also this could be from the influenza as he was found to be positive for influenza a here. His CBC does reveal no evidence of leukocytosis or anemia. Metabolic panel reveals no evidence of kidney or liver failure. Calcium slightly low at 8.4. Urine reveals trace protein, trace ketones, 3+ occult blood, red blood cells and epithelial cells. No bacteria. No nitrites. I do not suspect a urinary tract infection. Patient was given morphine here for pain. He was then given oxycodone and a short prescription for home. This was provided secondary to the right flank pain of which I contribute likely to a recently passed kidney stone. He is to follow with his family doctor. He was hydrated. He was educated upon management, educated upon worrisome symptoms which to return, had questions about discharge, and was discharged home in good condition. No red flags in the [place] drug monitoring system. In the evaluation and treatment of this patient the following differential diagnoses were entertained: Renal calculi, appendicitis, influenza, sepsis, among others. Impression Primary Impression: Influenza-like symptoms Additional Impression: Right flank pain Departure Information Dispostion Home / Self-Care Condition GOOD Prescriptions Oxycodone Ir (Roxicodone Ir) 5 Mg Tab 1-2 TAB PO Q4H Y for Pain, #15 TAB For Initial Treatment Prov: Pawel Mcfadden PA-C 12/10/17 Referrals Jm Ramos D.O. (PCP) Patient Instructions My [facility] Additional Instructions You have been treated in the Emergency Department today for the flu and Right flank pain. You have received pain medicine in the emergency department which impairs your ability to operate a vehicle. It is illegal for you to drive after receiving these medicines. You have been prescribed Oxy IR to be used for pain control. This is a narcotic medication. You cannot drive or consume alcohol while on this medicine. This medicine should only be used for pain that cannot be controlled with over-the- counter pain medicines. For pain control, you can use the following [id number] medicines: - Regular strength (325mg/tab) Tylenol (acetaminophen) 2 tabs every 4-6 hours as needed. Do not exceed 12 tablets in a 24 hour period. Avoid taking more than 3 grams (3000 mg) of Tylenol per day. This includes any other sources of acetaminophen you may take on a regular basis. - Regular strength (200 mg/tab) Advil (ibuprofen) 1-2 tabs every 4-6 hours as needed. Do not exceed a dose of 3200 mg per day. Please call your family doctor to schedule follow-up. Return to the Emergency Department if your symptoms persist despite the treatment plan outlined above or if you develop the following symptoms: intractable pain, fever, chills, or large amounts of blood in your urine. Problem Qualifiers
[2017-12-10 11:48] VITALS: BP 133/83; PULSE 72; O2SAT 99
[2017-12-10] MEDS ORDERED: OXYC1TAB3 PO (17:16)
== END 2017-12-10 11:50 | disposition home or self-care (01) ==
LOC: C.EDB 08:20 → C.EDA 11:50
DX: J11.1 Influenza due to unidentified influenza virus with other respiratory manifestations (principal); R10.9 Unspecified abdominal pain; R76.11 Nonspecific reaction to tuberculin skin test without active tuberculosis; I10 Essential (primary) hypertension; Z87.442 Personal history of urinary calculi